=== PATIENT | male | born 1980 | race African-American/Black ===

== ENCOUNTER 2018-02-25 17:48 | Emergency (ER) | payer MEDICAID ==
[~2018-02-25] VITALS: Ht 180.3 cm; Wt 83.9 kg
[2018-02-25 18:10] VITALS: BP 109/73
--- NOTE | 2018-02-25 19:21 | Diagnostic Imaging Report ---
EXAM: XR Left Knee, 4 views CLINICAL HISTORY: PAIN TECHNIQUE: 4 views of the left knee. COMPARISON: No relevant prior studies available. FINDINGS: Bones/joints: No acute fracture. Small effusion. Soft tissues: No radiodense foreign body. Soft tissue swelling. IMPRESSION: No acute fracture.
--- NOTE | 2018-02-25 19:23 | Diagnostic Imaging Report ---
EXAM: XR Left Ribs, 4 Views CLINICAL HISTORY: PAIN TECHNIQUE: Frontal and oblique views of the left ribs. COMPARISON: No relevant prior studies available. FINDINGS: Lungs: No consolidation. Pleural space: Unremarkable. No pneumothorax. Bones/joints: No displaced rib fracture. Upper abdomen: Radiodense material in the left side of the abdomen. IMPRESSION: No displaced rib fracture.
[2018-02-25] MEDS ORDERED: IBUPROFEN600 MG ORAL (19:54)
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
[2018-02-25 19:58] VITALS: BP 109/73
== END 2018-02-25 19:58 | disposition home or self-care (01) ==
LOC: EMR 18:19
DX: S80.02XA Contusion of left knee, initial encounter (principal); S20.212A Contusion of left front wall of thorax, initial encounter; V13.4XXA Pedal cycle driver injured in collision with car, pick-up truck or van in traffic accident, initial encounter; Y93.55 Activity, bike riding; Y92.410 Unspecified street and highway as the place of occurrence of the external cause
CPT/HCPCS: 99284